=== PATIENT | male | born 1935 | race Caucasian/White ===

== ENCOUNTER 2019-08-29 20:25 | Inpatient (IN) ==
[2019-08-29] MEDS ORDERED: Isovue-370 500 ML BOTTLE IVP ONE (22:52)
[2019-08-29 22:59] LABS: Bilirubin,Urine Negative (Negative); Blood,Urine Negative (Negative); Clarity,Urine Clear (Clear); Color,Urine Yellow (Yellow); Glucose,Urine (UA) Normal (Normal); Ketones,Urine Negative (Negative); Leukocyte Esterase,Urine Negative (Negative); Nitrite,Urine Negative (Negative); Protein,Urine 30 mg/dL (Neg-Trace); Specific Gravity,Urine 1.012 (1.010-1.025); Urobilinogen,Urine Normal (Normal)
[2019-08-29] MEDS ORDERED: 0.9 % Sodium Chloride 1,000 ML IVC SCH (23:00)
[2019-08-29 23:01] LABS: Bacteria,Urine None Seen per hpf (None-Few); Hyaline Casts,Urine None Seen per lpf (None-Few); RBC,Urine 0-3 per hpf (0-3); Squamous Epithelial Cell,Urine Moderate per lpf (None-Few); WBC,Urine 0-3 per hpf (0-3)
[2019-08-29] MEDS: Calcium Gluconate 1gm/50mL 1 GM/50 ML BAG IVPB SCH ×2 (23:05→23:38)
[2019-08-29 23:07] LABS: Basophils # 0.1 K/mcL (0.0-0.2); Basophils % 0.7 %; Eosinophils # 0.3 K/mcL (0.0-0.6); Eosinophils % 2.5 %; Hematocrit 34.2 % (37.5-50.1); Hemoglobin 11.4 g/dL (12.9-16.9); Immature Granulocytes % 0.7 % (0-4); Lymphocytes # 2.2 K/mcL (0.6-4.6); Lymphocytes % 21.2 %; Mean Corpuscular HGB Conc 33.3 g/dL (31.6-35.5); Mean Corpuscular Hemoglobin 32.6 pg (28.0-33.3); Mean Corpuscular Volume 97.7 fL (83.0-100.0); Mean Platelet Volume 10.7 fL (9.4-12.4); Monocytes # 1.1 K/mcL (0.0-1.3); Monocytes % 10.6 %; Neutrophils # 6.7 K/mcL (1.6-8.9); Platelet Count 194 K/mcL (140-400); Red Cell Distribution Width 12.7 % (11.5-14.5); Segmented Neutrophils % 64.3 %; White Blood Count 10.5 K/mcL (4.3-11.1)
[2019-08-29 23:10] LABS: INR 1.1; Prothrombin Time 12.8 Seconds (9.4-12.1)
[2019-08-29 23:13] LABS: Activated Partial Thrombo Time 35.3 Seconds (26.0-36.0)
[2019-08-29 23:22] LABS: Albumin 4.1 g/dL (3.5-5.7); Albumin/Globulin Ratio 1.5 (1.1-2.2); Bilirubin,Direct 0.1 mg/dL (0.0-0.2); Bilirubin,Indirect 0.3 mg/dL (0.0-1.0); Bilirubin,Total 0.4 mg/dL (0.3-1.0); Globulin 2.7 g/dL (2.4-3.5); Total Protein 6.8 g/dL (6.4-8.9)
[2019-08-29 23:30] LABS: Calcium 9.4 mg/dL (8.6-10.3); Troponin I 0.04 ng/mL (< 0.04)
[2019-08-29] MEDS ORDERED: Insulin Human Regular 10 UNIT in 0.9 % Sodium Chloride 10 ML IV ONE (23:41)
[2019-08-29] MEDS ORDERED: *HR* Dextrose 50 % in Water (Syg) 50 ML SYRINGE IVP ONE (23:42)
[2019-08-30] MEDS ORDERED: Naloxone 0.4 MG/ML INJ IVP PRN (03:20)
[2019-08-30] MEDS ORDERED: Ondansetron 4 MG/2 ML VIAL IVP PRN (03:20)
[2019-08-30] MEDS ORDERED: Acetaminophen 325 MG TABLET PO PRN (03:20)
[2019-08-30] MEDS ORDERED: 0.9 % Sodium Chloride 1,000 ML IVC SCH ×2 (05:30→12:45)
[2019-08-30 06:43] LABS: Hematocrit 34.4 % (37.5-50.1); Hemoglobin 11.6 g/dL (12.9-16.9); Mean Corpuscular HGB Conc 33.7 g/dL (31.6-35.5); Mean Corpuscular Hemoglobin 31.9 pg (28.0-33.3); Mean Corpuscular Volume 94.5 fL (83.0-100.0); Mean Platelet Volume 10.7 fL (9.4-12.4); Platelet Count 174 K/mcL (140-400); Red Blood Count 3.64 M/mcL (4.19-5.50); Red Cell Distribution Width 12.4 % (11.5-14.5); White Blood Count 8.7 K/mcL (4.3-11.1)
[2019-08-30 06:55] LABS: Troponin I 0.04 ng/mL (< 0.04)
[2019-08-30 06:57] LABS: Calcium 9.8 mg/dL (8.6-10.3); Potassium 5.9 mEq/L (3.5-5.1)
[2019-08-30] MEDS ORDERED: SODIUM ZIRCONIUM CYCLOSILICATE 5 GM POWD.PACK PO SCH (09:00)
[2019-08-30] MEDS: Apixaban 2.5 MG TABLET PO SCH ×2 (09:03→21:03)
[2019-08-30] MEDS: amLODIPine 5 MG TABLET PO SCH ×2 (09:03→21:03)
[2019-08-30] MEDS ORDERED: Apixaban 5 MG TABLET PO ONE (12:32)
[2019-08-30] MEDS ORDERED: Sodium Bicarbonate 150 MEQ in D5% in Water 1,000 ML IVC SCH (15:30)
[2019-08-30] MEDS: Finasteride 5 MG TABLET PO SCH (16:59)
[2019-08-30] MEDS: Famotidine 20 MG TABLET PO SCH (21:04)
[2019-08-30] MEDS: Calcium Gluconate 1gm/50mL 1 GM/50 ML BAG IVPB SCH (23:31)
[2019-08-31 02:10] LABS: Hematocrit 31.2 % (37.5-50.1); Hemoglobin 10.2 g/dL (12.9-16.9); Mean Corpuscular HGB Conc 32.7 g/dL (31.6-35.5); Mean Corpuscular Hemoglobin 32.3 pg (28.0-33.3); Mean Corpuscular Volume 98.7 fL (83.0-100.0); Mean Platelet Volume 10.8 fL (9.4-12.4); Platelet Count 157 K/mcL (140-400); Red Blood Count 3.16 M/mcL (4.19-5.50); Red Cell Distribution Width 12.6 % (11.5-14.5); White Blood Count 7.5 K/mcL (4.3-11.1)
[2019-08-31 02:33] LABS: Calcium 9.2 mg/dL (8.6-10.3); Magnesium 1.9 mg/dL (1.6-2.6); Potassium 5.4 mEq/L (3.5-5.1)
[2019-08-31] MEDS: Metoprolol XL (24 HR) Succ 50 MG TAB.ER.24H PO SCH (09:08)
[2019-08-31] MEDS: Apixaban 2.5 MG TABLET PO SCH ×2 (09:08→19:37)
[2019-08-31] MEDS: amLODIPine 5 MG TABLET PO SCH ×2 (09:08→19:37)
[2019-08-31] MEDS: Finasteride 5 MG TABLET PO SCH (17:38)
[2019-08-31] MEDS: Famotidine 20 MG TABLET PO SCH (19:37)
[2019-09-01 03:33] LABS: Hematocrit 32.3 % (37.5-50.1); Hemoglobin 10.9 g/dL (12.9-16.9); Mean Corpuscular HGB Conc 33.7 g/dL (31.6-35.5); Mean Corpuscular Hemoglobin 31.6 pg (28.0-33.3); Mean Corpuscular Volume 93.6 fL (83.0-100.0); Mean Platelet Volume 10.6 fL (9.4-12.4); Platelet Count 171 K/mcL (140-400); Red Blood Count 3.45 M/mcL (4.19-5.50); Red Cell Distribution Width 12.4 % (11.5-14.5); White Blood Count 7.9 K/mcL (4.3-11.1)
[2019-09-01 03:44] LABS: Calcium 9.6 mg/dL (8.6-10.3); Potassium 5.5 mEq/L (3.5-5.1)
[2019-09-01] MEDS: amLODIPine 5 MG TABLET PO SCH ×2 (09:14→20:14)
[2019-09-01] MEDS: Metoprolol XL (24 HR) Succ 50 MG TAB.ER.24H PO SCH (09:14)
[2019-09-01] MEDS: Apixaban 2.5 MG TABLET PO SCH ×2 (09:14→20:14)
[2019-09-01] MEDS: Finasteride 5 MG TABLET PO SCH (17:46)
[2019-09-01] MEDS: Famotidine 20 MG TABLET PO SCH (20:13)
[2019-09-02 05:30] LABS: Calcium 9.4 mg/dL (8.6-10.3); Potassium 5.5 mEq/L (3.5-5.1)
[2019-09-02] MEDS: amLODIPine 5 MG TABLET PO SCH ×2 (10:04→22:17)
[2019-09-02] MEDS: Metoprolol XL (24 HR) Succ 50 MG TAB.ER.24H PO SCH (10:04)
[2019-09-02] MEDS ORDERED: Simethicone 40 MG/0.6 ML MLS IR ONE (12:00)
[2019-09-02] MEDS ORDERED: Lidocaine Jelly 11 ml Syringe MM ONE (15:57)
[2019-09-02] MEDS: Finasteride 5 MG TABLET PO SCH (17:13)
[2019-09-02] MEDS: Famotidine 20 MG TABLET PO SCH (22:17)
[2019-09-02] MEDS: Apixaban 2.5 MG TABLET PO SCH (22:17)
[2019-09-03 05:11] LABS: Hematocrit 36.2 % (37.5-50.1); Hemoglobin 12.4 g/dL (12.9-16.9); Mean Corpuscular HGB Conc 34.3 g/dL (31.6-35.5); Mean Corpuscular Hemoglobin 31.6 pg (28.0-33.3); Mean Corpuscular Volume 92.3 fL (83.0-100.0); Mean Platelet Volume 10.3 fL (9.4-12.4); Platelet Count 225 K/mcL (140-400); Red Blood Count 3.92 M/mcL (4.19-5.50); Red Cell Distribution Width 12.2 % (11.5-14.5); White Blood Count 9.1 K/mcL (4.3-11.1)
[2019-09-03 05:38] LABS: Calcium 9.8 mg/dL (8.6-10.3); Potassium 5.1 mEq/L (3.5-5.1)
[2019-09-03] MEDS: amLODIPine 5 MG TABLET PO SCH (07:40)
[2019-09-03] MEDS: Apixaban 2.5 MG TABLET PO SCH (07:40)
[2019-09-03] MEDS: Metoprolol XL (24 HR) Succ 50 MG TAB.ER.24H PO SCH (07:40)
[2019-09-03 11:02] VITALS: BP 130/58
== END 2019-09-03 13:43 | disposition home or self-care (01) | DRG 394 ==
LOC: 3ANU 20:25 → EMEROOARM 20:25 → SUATTDRO 08-30 02:15 → 3ANU 08-30 03:15 → SUATTDRO 08-31 12:55
PROVIDERS: ADMIT Internal Medicine; ATTEND Internal Medicine